=== PATIENT | male | born 1955 ===

== ENCOUNTER 2017-03-25 06:03 | Emergency (ER) | payer OTHER ==
[2017-03-25] MEDS ORDERED: Hydrocodone/Acetaminophen 5 mg /300 mg Tab PO STA (07:26)
[2017-03-25] MEDS ORDERED: Hydrocodone/Acetaminophen 5 mg /300 mg Tab PO ONE (07:32)
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
[2017-03-25 08:34] VITALS: BP 130/82; PULSE 61; RESP 18; TEMP 98.4
[2017-03-25 08:37] VITALS: O2SAT 97
--- NOTE | 2017-03-25 08:57 | RAD ---
PROCEDURE: Radiographs of the Chest and Right Ribs. HISTORY: fall one week ago COMPARISON: 07/19/2013 TECHNIQUE: Frontal radiograph of the chest and multiple oblique radiographs of the right ribs were obtained. FINDINGS: RIGHT RIBS: No fracture or focal lesion visualized. LUNGS: Clear. PLEURA: No pneumothorax or pleural fluid. CARDIOVASCULAR: Mild cardiomegaly. No pulmonary venous congestion OTHER FINDINGS: Thoracic spondylosis IMPRESSION: No rib fracture, pleural effusion or pneumothorax. Cardiomegaly -similar. No interval pathology noted
== END 2017-03-25 08:38 | disposition home or self-care (01) ==
LOC: C.ER 06:03
DX: S22.31XA Fracture of one rib, right side, initial encounter for closed fracture (principal); V18.0XXA Pedal cycle driver injured in noncollision transport accident in nontraffic accident, initial encounter; Y93.55 Activity, bike riding

== ENCOUNTER 2017-09-01 13:22 | Emergency (ER) | payer OTHER ==
[2017-09-01 13:22] VITALS: BMI 42.1
[2017-09-01] MEDS ORDERED: Tetracaine 0.5% Ophth (OR ONLY) ONE (13:59)
[2017-09-01] MEDS ORDERED: Fluorescein 1 mg Ophthalmic Strip ONE (13:59)
[2017-09-01 14:04] VITALS: BP 140/75; PULSE 70; RESP 16; TEMP 98; O2SAT 97
--- NOTE | 2017-09-01 14:08 | C.PDOC ---
History Of Present Illness 62 y/o M c PMHx DM, non contact lens wearer p/w L eye irritation since awakening this morning. States he feels as though something may be in the eye. 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 Denies vision change, photophobia, halos. Notes tearing but no other discharge. Time Seen by Provider: 09/01/17 13:54 Chief Complaint (Nursing): Eye Problem Past Medical History Vital Signs: Last Vital Signs Temp 98.0 F 09/01/17 14:01 Pulse 70 09/01/17 14:01 Resp 16 09/01/17 14:01 BP 140/75 09/01/17 14:01 Pulse Ox 97 09/01/17 14:01 - Medical History PMH: Depression, Diabetes, HTN Denies: Hepatitis, HIV, Seizures, Sexually Transmitted Disease - [facility] Procedures APPLICATION OF SPLINT (09/23/14) Family History: States: Unknown Family Hx - Social History Hx Tobacco Use: Yes Hx Alcohol Use: No Hx Substance Use: No - Immunization History Hx Tetanus Toxoid Vaccination: No Hx Influenza Vaccination: No Hx Pneumococcal Vaccination: No Review Of Systems Except As Marked, All Systems Reviewed And Found Negative. Constitutional: Negative for: Fever Eyes: Negative for: Vision Change Physical Exam - Physical Exam Additional Physical Exam Comments: Gen: Sitting in chair, keeping eye closed, tears. Head: AT Eyes: PERRL. EOMI. L ear tearing. No hyphema. With staining, positive corneal abrasion. No foreign body found including with eyelid eversion. ED Course And Treatment O2 Sat by Pulse Oximetry: 97 Medical Decision Making Medical Decision Making: Oral analgesia, f/u Ophtho, instructed to return to ED for worsening vision or pain. Disposition - Disposition Referrals: Faustino Garcia [Staff Provider] - Disposition: HOME/ ROUTINE Disposition Time: 14:09 Condition: STABLE Instructions: Corneal Abrasion Forms: [facility] ([place]ian), Work Excuse - Clinical Impression Clinical Impression: Corneal abrasion
== END 2017-09-01 14:21 | disposition home or self-care (01) ==
LOC: C.ER 13:22
DX: S05.02XA Injury of conjunctiva and corneal abrasion without foreign body, left eye, initial encounter (principal); X58.XXXA Exposure to other specified factors, initial encounter